=== PATIENT | male | born 1970 | race American Indian/Alaskan Native ===

== ENCOUNTER 2022-09-28 02:01 | Emergency (ER) | payer BC ==
[2022-09-28] MEDS: Bupivacaine 0.25% 10 ML SDV INJECT ONE (02:36)
[2022-09-28] MEDS: Take Home: Acetaminophen/HYDROcodone 325-5 MG, 5 Tab Pack PO ONE (03:01)
[2022-09-28] MEDS: Take Home: Amoxicillin/Clavulanate K 875-125 MG Tab, 6 Tab Pack PO ONE (03:01)
== END 2022-09-28 03:19 | disposition home or self-care (01) ==
LOC: DL.ED 02:01
DX: K02.9 Dental caries, unspecified (principal)
CPT/HCPCS: 64400; 99282; A9270; J3490